=== PATIENT | male | born 1950 | race Caucasian/White ===

== ENCOUNTER 2017-06-25 14:42 | Emergency (ER) | payer OTHER ==
[~2017-06-25] VITALS: Ht 167.6 cm; Wt 78.0 kg
[2017-06-25 14:55] VITALS: BP_SYST 122
[2017-06-25] MEDS ORDERED: DIPH-TET-PERTUS Vaccine 0.5 ML VIAL (ADACEL) IM ONE (17:00)
[2017-06-25] MEDS ORDERED: IBUPROFEN 600 MG TABLET PO ONE (17:00)
[2017-06-25] MEDS ORDERED: BACITRACIN 1 GM OINT TP ONE (17:00)
[2017-06-25] MEDS ORDERED: LIDOCAINE/EPI 1% 1:100000 20 ML VIAL IJ ONE (17:00)
[2017-06-25 17:42] VITALS: BP_SYST 157
== END 2017-06-25 17:42 | disposition home or self-care (01) ==
LOC: SED 14:42
DX: S51.012A Laceration without foreign body of left elbow, initial encounter (principal); W45.8XXA Other foreign body or object entering through skin, initial encounter; Y93.89 Activity, other specified; Y92.89 Other specified places as the place of occurrence of the external cause; Y99.8 Other external cause status
CPT/HCPCS: 90715; 99284